=== PATIENT | male | born 1985 ===

== ENCOUNTER 2017-07-21 22:15 | Emergency (ER) | payer SELFPAY ==
[2017-07-21 22:25] VITALS: BP 123/74; PULSE 74; RESP 16; TEMP 98; O2SAT 99
[2017-07-21] MEDS ORDERED: Tdap Vaccine 0.5 ml Vial (10-64 yrs) IM ONE ×2 (22:28→22:36)
--- NOTE | 2017-07-21 22:38 | ED PDOC ---
Lower Extremity Pain/Injury Time Seen by Provider: 07/21/17 22:30 Chief Complaint (Nursing): Lower Extremity Problem/Injury Chief Complaint (Provider): right foot puncture wound History Per: Patient (31 y/o male here for evaluation of puncture wound that occurred 12 hours ago at work when he stepped on nail. States the nail went through shoe and into skin. Nail was removed but was noted asher. Unsure of tetanus status.) Past Medical History Reviewed: Historical Data, Nursing Documentation, Vital Signs Vital Signs: Last Vital Signs Temp 98 F 07/21/17 22:23 Pulse 74 07/21/17 22:23 Resp 16 07/21/17 22:23 BP 123/74 07/21/17 22:23 Pulse Ox 99 07/21/17 22:23 - Family History Family History: States: No Known Family Hx - Immunization History Hx Tetanus Toxoid Vaccination: Yes (More than 5 years ago) - Home Medications Home Medications: Ambulatory Orders Medication Instructions Recorded Ciprofloxacin HCl [Cipro] 500 mg PO BID #9 tablet 07/21/17 - Allergies Allergies/Adverse Reactions: Allergies Allergy/AdvReac Type Severity Reaction Status Date / Time No Known Allergies Allergy Verified 07/21/17 22:25 Review of Systems ROS Statement: Except As Marked, All Systems Reviewed And Found Negative Physical Exam - Reviewed Nursing Documentation Reviewed: Yes Vital Signs Reviewed: Yes - Physical Exam Appears: Positive for: Well, Non-toxic, No Acute Distress Head Exam: Positive for: ATRAUMATIC, NORMAL INSPECTION, NORMOCEPHALIC Skin: Positive for: Normal Color, Warm, DRY Eye Exam: Positive for: EOMI, Normal appearance, PERRL ENT: Positive for: Normal ENT Inspection Neck: Positive for: Normal, Painless ROM Cardiovascular/Chest: Positive for: Regular Rate, Rhythm Respiratory: Positive for: CNT, Normal Breath Sounds Gastrointestinal/Abdominal: Positive for: Normal Exam, Bowel Sounds, Soft Back: Positive for: Normal Inspection Extremity: Positive for: Normal ROM, Other (small puncture wound noted by sole of foot. No signs of surrounding erythema/swelling/signs of infection. No foreign body noted.) Neurologic/Psych: Positive for: Alert, Oriented - ECG O2 Sat by Pulse Oximetry: 99 - Progress ED Course And Treament: TDAP 0.5 ml IM x 1 dose Cipro 500 mg x 1 dose Xry of foot: NO FOREIGN BODY NOTED Disposition - Clinical Impression Clinical Impression: Puncture wound of foot - Patient ED Disposition Is Patient to be Admitted: No - Disposition Disposition: Routine/Home Disposition Time: 22:49 Condition: FAIR Additional Instructions: RETURN TO ED OR F/U WITH URGENT CARE/PMD IN 2 DAYS FOR WOUND CHECK Prescriptions: Ciprofloxacin HCl [Cipro] 500 mg PO BID #9 tablet Instructions: Wound Care (DC) Forms: [facility] [employer] (Telugu), [facility] ED School/Work Excuse Print Language: EGYPTIAN
--- NOTE | 2017-07-22 08:30 | RAD ---
PROCEDURE: Right Foot Radiographs. HISTORY: r/o foreign body COMPARISON: None. FINDINGS: BONES: No acute fracture or destructive bony lesion identified. JOINTS: Normal. SOFT TISSUES: Normal. OTHER FINDINGS: None. IMPRESSION: Normal appearing right foot radiographs.
== END 2017-07-21 23:39 | disposition home or self-care (01) ==
LOC: H.ER 22:15
DX: S91.331A Puncture wound without foreign body, right foot, initial encounter (principal); W26.8XXA Contact with other sharp object(s), not elsewhere classified, initial encounter; Y99.0 Civilian activity done for income or pay